=== PATIENT | female | born 1990 | race Caucasian/White ===

== ENCOUNTER 2020-04-30 00:51 | Emergency (ER) | payer OTHER ==
[~2020-04-30] VITALS: Ht 172.7 cm; Wt 59.0 kg
[2020-04-30] MEDS ORDERED: AUGMENTIN 875-1 EACH PO (02:50)
[2020-04-30] MEDS ORDERED: TRAMADOL 50 MG50 MG PO (02:50)
[2020-04-30 03:10] VITALS: BP 120/60
== END 2020-04-30 03:19 | disposition home or self-care (01) ==
LOC: ER 00:51
DX: S41.112A Laceration without foreign body of left upper arm, initial encounter (principal); F17.210 Nicotine dependence, cigarettes, uncomplicated; W54.0XXA Bitten by dog, initial encounter; Y93.89 Activity, other specified; Y92.89 Other specified places as the place of occurrence of the external cause; Y99.8 Other external cause status

== ENCOUNTER 2020-12-09 09:45 | Emergency (ER) | payer OTHER ==
[~2020-12-09] VITALS: Ht 172.7 cm; Wt 77.1 kg
[~2020-12-09 09:45] MED LIST: AUGMENTIN 875-1 EACH PO; TRAMADOL 50 MG50 MG PO
[2020-12-09] MEDS ORDERED: HYDROCODON-ACE1 EAC7 PO (12:27)
[2020-12-09] MEDS ORDERED: AUGMENTIN 875-1 EACH PO (12:27)
[2020-12-09 12:38] VITALS: BP 122/87
== END 2020-12-09 12:38 | disposition home or self-care (01) ==
LOC: ER 09:45
DX: S51.852A Open bite of left forearm, initial encounter (principal); S21.132A Puncture wound without foreign body of left front wall of thorax without penetration into thoracic cavity, initial encounter; R51.9 Headache, unspecified; M79.651 Pain in right thigh; M79.89 Other specified soft tissue disorders; R68.84 Jaw pain; F17.210 Nicotine dependence, cigarettes, uncomplicated; Z79.899 Other long term (current) drug therapy; Z79.2 Long term (current) use of antibiotics; Y04.8XXA Assault by other bodily force, initial encounter; W54.0XXA Bitten by dog, initial encounter; Y93.89 Activity, other specified; Y92.098 Other place in other non-institutional residence as the place of occurrence of the external cause; Y99.8 Other external cause status